=== PATIENT | female | born 1965 | race Caucasian/White ===

== ENCOUNTER → 2023-08-16 08:42 | Outpatient (REF) | payer OTHER, SELFPAY | LOC: HWWDC 08:42 | PROVIDERS: ATTENDING PHYSICIAN Nurse Practitioner Family | DX: Z12.31 Encounter for screening mammogram for malignant neoplasm of breast (principal) | CPT/HCPCS: 77063; 77067 ==

== ENCOUNTER 2023-08-21 15:49 | Inpatient (IN) | payer OTHER, SELFPAY ==
[2023-08-21] VITALS (12 sets, daily range): BP systolic 90–125; BP diastolic 58–97; BMI 25.3
[2023-08-21 13:24] LABS: Hematocrit 34.6 % (37.0-47.0); Hemoglobin 12.1 g/dL (12.0-16.0); Mean Corpuscular Hgb 32.7 pg (27.0-31.0); Mean Corpuscular Volume 93.5 fL (81.0-99.0); Mean Platelet Volume 9.7 fL (7.4-10.4); Platelet Count 160 10^3/uL (130-400); Red Cell Dist. Width 13.2 % (11.5-14.5); White Blood Cell Count 25.7 10^3/uL (4.8-10.8)
[2023-08-21] MEDS: ZOSYN 50 IV ×2 (13:42→20:14)
[2023-08-21 13:43] LABS: ALT (SGPT) 21 U/L (0-35); AST (SGOT) 27 U/L (14-36); Alkaline Phosphatase 77 U/L (38-126); Blood Urea Nitrogen 29 mg/dl (7-17); Calcium 8.9 mg/dl (8.4-10.2); Carbon Dioxide 21 mmol/L (22-30); Chloride 100 mmol/L (98-107); Glucose 105 mg/dl (70-99); Lactic Acid 1.3 mmol/L (0.7-2.0); Potassium 3.5 mmol/L (3.5-5.1); Sodium 130 mmol/L (135-145); Total Bilirubin 1.3 mg/dl (0.2-1.3); Total Protein 7.1 g/dl (6.3-8.2); eGFR 32.46
[2023-08-21] MEDS: NSS 2000 IV (13:43)
[2023-08-21 13:49] LABS: Absolute Neutrophils -Man Diff 22.6 10^3/uL (1.4-6.5); Band Neutrophils 14 % (0-3); Lymphocytes 8 % (20-51); Monocytes 4 % (2-9); Platelets Checked Yes; Segmented Neutrophils 74 % (42-75)
[2023-08-21 13:50] LABS: Normal RBC Morphology Yes; Total Cells Counted 100
--- NOTE | 2023-08-21 14:09 | CON.CRS ---
Addendum entered and electronically signed by Dano Guerrero MD 08/21/23 14:40:
I saw and examined the patient independently.
The Shaft Headman's note was reviewed and I agree with the note, assessment and plan except where noted below.
Comment: This is a 57-year-old female with history of CKD, ulcerative colitis status post near total proctocolectomy with J-pouch in 2003 at [facility] that was complicated by failure converted to an end ileostomy. She gets periodic surveillance of
her rectal pouch. She had an outpatient sigmoidoscopy on , 08/19/2023 at an outpatient hospital. The next day she started having pain, chills and started on Cipro Flagyl. As her pain continued to get worse she was referred to us for
further evaluation. On exam her vital signs are stable, she does have tenderness on digital rectal examination but no blood or pus noted on the glove. Her abdomen is soft and and distended.
Concern for localized perforation of the rectum likely below the peritoneal reflection.
Will plan for CT scan abdomen pelvis with rectal Omnipaque. Discussed with providers to only place the tube 2 cm from the anal verge (I was able to palpate up to 4 cm in the rectum). Unable to use IV contrast due to CKD.
Admit to hospitalist
Broad-spectrum IV antibiotics for now with Zosyn
Procedural intervention pending CT scan findings.
Patient and agreeable to plan above.
Will follow
Original Note:
Medical History
-
Chief Complaint: rectal pain
History of Present Illness:
This is a 57 yo patient with a h/o CKD-3 and Ulcerative colitis with a total colectomy in 2003 with creation of J-pouch at [facility] and subsequent end ileostomy d/t complications with the j-pouch. She had a routine surveillance outpatient sigmoidoscopy
on () with Dr. Nicole with bleeding noted during and after the procedure. She has had prior sigmoidoscopies without incident although anal stricturing has been noted. She has had persistent rectal pain since the procedure on
and was started on cipro and flagyl yesterday by Dr. Nicole. Her pain has persisted and she was having chills at home causing and she was advised to present for further evaluation to the ED by the bonus clerk CRS for Dr. Nicole. LATA done at bedside
with tenderness/discomfort during exam. No active bleeding noted. No external injury visualized. Ostomy with pink stoma/functioning well. No complaints of nausea, vomiting or abdominal pain.
Past Medical History
Past Medical History: Renal Failure (CKD-3) and Other (UC, Pyoderma gangrenosum, DVT in 2003 (provoked))
Past Surgical History: Bowel Resection (Total colectomy with j-pouch and ultimately end ileostomy 2003) and Orthopedic (left wrist ganglion cyst)
Social History
Tobacco: Non-Smoker
Alcohol: None
Personal:
Living: With Family
Family History
Family History: Reviewed & Not Pertinent
Allergies / Home Medications
Allergy/AdvReac Type Severity Reaction Status Date / Time
NKA - No Known Allergies Allergy Unknown Uncoded 08/21/23 11:49
Medication Instructions Recorded Confirmed Type
amoxicillin 875 mg-potassium 1 tab PO Q12 #14 tabs 11/11/20 Rx
clavulanate 125 mg tablet
doxycycline hyclate 100 mg capsule 100 mg PO Q12 #14 caps 11/11/20 Rx
Review of Systems
-
History Source: Patient and Family
All other systems: Negative unless noted
A 10 point review of systems was completed, and was negative except as per HPI.
Physical Exam
Vital Signs
Temp 99.1 F 08/21/23 11:50
Pulse 78 08/21/23 13:19
Resp Rate 16 08/21/23 13:19
Blood pressure 97/58 08/21/23 13:43
SaO2 100 08/21/23 13:35
08/20/23 08/21/23 08/22/23
06:59 06:59 06:59
Actual Weight 63 kg
Lab Results / Allergies
08/21/23 13:13
08/21/23 13:13
WBC 25.7 10^3/uL (4.8-10.8) H 08/21/23 13:13
Hgb 12.1 g/dL (12.0-16.0) 08/21/23 13:13
Hct 34.6 % (37.0-47.0) L 08/21/23 13:13
Plt Count 160 10^3/uL (130-400) 08/21/23 13:13
Allergy/AdvReac Type Severity Reaction Status Date / Time
NKA - No Known Allergies Allergy Unknown Uncoded 08/21/23 11:49
Physical Exam
General: Well Developed; Negative Comfortable
HEENT: Normocephalic
Respiratory: Non Labored Respirations
GI: Soft, Non Tender, Non Distended and Other (stoma pink/viable, loose stool output)
Rectal: Tenderness
Skin: Warm and Dry
Neuro: Awake, Alert and AO x 3
Psych: Calm
Data Reviewed
-
Labs: Labs Reviewed by me, Discussed with Physician, Discussed with Patient and Discussed with Family
Old Records: Reviewed
Assessment / Plan
-
57 yo female h/o CKD-3 (unsure of baseline Cr) and Ulcerative colitis with a total colectomy in 2003 with creation of J-pouch at [facility] and subsequent end ileostomy d/t complications with the j-pouch who underwent a routine surveillance sigmoidoscopy
on as an outpatient with Dr. Nicole. Bleeding was noted during the procedure. She has had continued progressively worsening rectal pain since the procedure causing her to present. Cipro/flagyl started yesterday without much effect. Significant
leukocytosis noted, with soft/low BP. No active fever but does note chills today. Suspect proctitis vs perforation of the rectal pouch/abscess
--Admit to medicine service
--Obtain CT of the abd/pelvis with rectal contrast. Unable to use IV contrast d/t elevated cr
--IV zosyn started in the ED would continue
--Trend labs/fevers
Further surgical recs pending CT imaging findings
--- NOTE | 2023-08-21 14:18 | ED.GENMED ---
History of Present Illness
General
Chief Complaint: Fever
Source: patient and family
Exam Limitations: none
Time Seen by Provider: 08/21/23 12:55
Nursing documentation reviewed up to this point in time: agreed with
Travel History
Have you had any contact with someone who has COVID-19?: No
Do you have any symptoms of coronavirus? Fever > 100 degrees, chills, cough, shortness of breath, sore throat, loss of taste or smell, muscle aches, or headache?: No
History of Present Illness
History of Present Illness:
Patient very pleasant 57-year-old female status post colectomy with ostomy for colitis, had a surveillance sigmoidoscopy 2 days ago at [facility] since then she has had fatigue nausea not eating fevers referred here for evaluation
Takes lisinopril no other medication
Past History
Past History
ED Past Medical History: None
ED Past Surgical History: None
Social History
Tobacco: Non-smoker
Alcohol: Occasional
Drug: None
Personal:
Living: with family
Employment: Employed
Family History
Family History: Other (Noncontributory)
Review of Systems
Review of Systems
All Other Systems: Not applicable
Constitutional: Reports fever, fatigue and chills
EENT: Reports no symptoms
Respiratory: Reports no symptoms
Cardiac: Reports no symptoms
ABD/GI: Reports nausea
: Reports no symptoms
Musculoskeletal: Reports no symptoms
Neurological: Reports weakness
Phy Exam
Physical Exam
Physical Exam:
Physical Exam
General: no apparent distress, not acutely ill
Neck: Lips are slight
Heart: s1/s2 regular rate and rhythm, no murmur. equal radial pulses.
Lungs: no acute respiratory distress. clear bilaterally
Abdomen: Soft not ostomy with air and liquid stool
Neuro: alert and oriented. no focal neurological deficits
Skin: no rash
Psychiatric: well kept. interactive and cooperative
Extremities: no edema.
Course
Orders/Labs/Results
Orders:
Orders
08/21/23 13:13
Complete Blood Count/With Diff Urgent
Comprehensive Metabolic Panel Urgent
Lactic Acid Urgent
Manual Differential Urgent
08/21/23 13:14
Blood Culture Q30M
WILSON Source: Blood/Venous
Specimen Description:
08/21/23 13:22
Blood Culture Q30M
WILSON Source: Blood/Venous
Specimen Description:
08/21/23 13:38
Piperacillin/Tazo 3.375 Gram [Zosyn] 3.375 gram in 50 ml IV NOW
08/21/23 13:39
0.9% Sodium Chloride 1000 ml [Nss] 2,000 ml IV BOLUS
08/21/23 14:14
CT Abd/pel Rectal Only-ED Only Urgent
Comment:
Reason For Exam: no colon, rectal pouch pain p biospy
Abnormal Lab Results
08/21/23
13:13
WBC 25.7 H 10^3/uL
(4.8-10.8)
RBC 3.70 L 10^6/uL
(4.20-5.40)
Hct 34.6 L %
(37.0-47.0)
MCH 32.7 H pg
(27.0-31.0)
Abs Neuts (Manual) 22.6 H 10^3/uL
(1.4-6.5)
Band Neutrophils 14 H %
(0-3)
Lymphocytes (Manual) 8 L %
(20-51)
Sodium 130 L mmol/L
(135-145)
Carbon Dioxide 21 L mmol/L
(22-30)
BUN 29 H mg/dl
(7-17)
Creatinine 1.8 H mg/dL
(0.6-1.0)
Glucose 105 H mg/dl
(70-99)
08/21/23 13:13
08/21/23 13:13
Vital Signs
Initial and Last Documented VS:
Initial Vital Signs
Temp Pulse Resp BP Pulse Ox
99.1 F 103 16 125/96 98
08/21/23 11:50 08/21/23 11:50 08/21/23 11:50 08/21/23 11:50 08/21/23 11:50
Last Documented Vital Signs
Temp Pulse Resp BP Pulse Ox
99.1 F 78 16 102/65 100
08/21/23 11:50 08/21/23 13:19 08/21/23 13:19 08/21/23 14:00 08/21/23 13:55
MDM/Problems Addressed
Differential Diagnosis Includes:
Postop infection and perforation concomitant viral syndrome
MDM/Problems Addressed:
Fever body aches leukocytosis
Chronic conditions affecting care:
Colitis colectomy
Chronic conditions affecting care: Previous abdomnial surgery
Acute Exacerbation and/or Progression of Chronic Illness: Previous abdomnial surgery
*Radiology
Radiology exam reviewed: preliminary read by ED provider
*Pulse Oximetry
Patient hypoxic: no
*[employer] Interpretation
Rate: tachycardiac
Interpretation: abnormal
Heart Rate: 110
Rhythm: sinus
*Critical Care Note
Total Time (30-74mins, 75-104mins- exclusive of procedures): Not Applicable
Update Note
Update Note:
Update white count noted reviewed with the surgery in the ER, they performed a LATA, patient's creatinine is up at baseline it appears white count is up we will start antibiotics consensus is to proceed with CT with rectal contrast
ED Attending Note
-
Portions of this chart may have been created with voice recognition software.� Occasional wrong word or��sound alike� substitutions may have occurred due to the inherent limitations of voice recognition software.
Discharge Plan
Departure
Patient Disposition: Admit
Date of Disposition: 08/21/23
Time of Disposition: 14:21
Admit to: Med/Surg
Presentation/result/management discussed w/ accepting MD/DO: Hospitalist
Patient with high blood pressure during this ER visit?: No
Condition: Fair
Discharge Problem:
Postprocedural infection
Prescriptions:
No Action
amoxicillin-pot clavulanate 1 TABLET tablet
1 tab PO Q12 Qty: 14 0RF
doxycycline hyclate 100 MG capsule
100 mg PO Q12 Qty: 14 0RF
Referrals:
Arnoldo Arreaga CRNP [Family Provider] -
Interventions
Interventions:
*Risk Screen - Suicide Last Done: 08/21/23 11:50
*General Assessment Last Done: 08/21/23 11:50
*Neglect/Abuse Screening Last Done: 08/21/23 11:50
*ED COVID-19 Vaccine History Last Done: 08/21/23 12:26
ED- Neurological Assessment Last Done: 08/21/23 12:26
ED-Skin Assessment Last Done: 08/21/23 12:26
--- NOTE | 2023-08-21 14:43 | HPS.HSE ---
Addendum entered and electronically signed by Arely Pham MD 08/21/23 16:42:
57-year-old female with history of ulcerative colitis and subtotal colectomy in the past. Recently had a surveillance sigmoidoscopy done by . Patient developed fever was started on antibiotics as outpatient. It was not coming down
therefore was asked to go to ER. Patient denies any abdominal pain. Had some rectal pain.
CT reviewed by me
I saw and examined the patient.
The TOBACCO SPRAYER or PA's note was reviewed and I agree with the note.
Comment:
On examination awake alert oriented
Cardiovascular system S1-S2 appreciated
Chest clear to auscultation
Abdomen pelvis area with tenderness with deep palpation, ileostomy
No abdominal guarding or rigidity
No pedal edema
CT of the abdomen pelvis-with rectal contrast only-status post colectomy with rectal pouch. There is contrast in the vaginal canal that would raise concern for communication between Rectum and vaginal canal. Ill-defined collection in the superior
to the lateral margin posterior to the retroverted uterus within the presacral region infected collection possibly. Numerous foci of retroperitoneal air extending superiorly within the pelvis and abdomen, small foci of air adjacent to the liver and
gallbladdeer
cholelithiasis.
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
Admit
Broad-spectrum antibiotics
IR consulted for drain placement
Colorectal surgery evaluation-Dr. Dano Guerrero covering evaluated
May need eventual surgery
ID consultation
Keep n.p.o. with IV fluids
Blood cultures
# Chronic kidney disease # stage unknown. Creatinine was 1.28 April 2023
Hold lisinopril
Continue IV fluids
# Ileostomy
# DVT prophylaxis-subcutaneous heparin
# Full code
D/w at bed side
Original Note:
Family Physician
-
Family Physician: TIARA Tyson
Chief Complaint
-
rectal pain
History of Present Illness
57 yo female h/o CKD-3 and Ulcerative colitis with a total colectomy in 2003 with creation of J-pouch at [facility] and subsequent end ileostomy d/t complications with the j-pouch who underwent a routine surveillance sigmoidoscopy on as an
outpatient with Dr. Nicole. Bleeding was noted during the procedure. She has had continued progressively worsening rectal pain since the procedure. She was febrile with a temperature of 101 with chills, nausea and vomiting yesterday, although she
cannot be sure if she was febrile on since she did not take her temperature that day. Subsequently, Cipro/flagyl was started yesterday without much effect so her brought her to the ED today. Significant leukocytosis noted. Currently
no fever but does note chills today.
Medical History
Past Medical History
Past Medical History: Reports Renal Failure (CKD 3) and Other (ulcerative colitis)
Past Surgical History: Reports Bowel Resection (Total colectomy with j-pouch and ultimately end ileostomy 2003) and Orthopedic (left wrist ganglion cyst)
Social History
Tobacco: Non-smoker
Alcohol: Occasional
Drug: None
Personal:
Living: With Family
Employment: Employed
Family History
Family History: Not pertinent
Allergies / Home Medications
Allergies reflects when Allergies were last updated in [facility].
Home Medications with original date entered in [facility]
Allergy/Medication List:
Allergies
Allergy/AdvReac Type Severity Reaction Status Date / Time
NKA - No Known Allergies Allergy Unknown Uncoded 08/21/23 11:49
Home Medications
acetaminophen 325 mg tablet (Tylenol) 650 mg PO Q6HPRN PRN mild pain 08/21/23
ascorbic acid (vitamin C) 500 mg tablet (Vitamin C) 500 mg PO DAILY 08/21/23
ciprofloxacin HCl 500 mg tablet 500 mg PO BID 08/21/23
lisinopril 2.5 mg tablet 2.5 mg PO DAILY 08/21/23
metronidazole 500 mg tablet 500 mg PO TID 08/21/23
omega-3 fatty acids-fish oil 684 mg-1,200 mg capsule,delayed release 1 cap PO DAILY 08/21/23
therapeutic multivitamin 1 tab PO DAILY 08/21/23
vitamin E 268 mg (400 unit) capsule 268 mg PO DAILY 08/21/23
Review of Systems
-
History Source: Patient
A 12 point ROS was completed and negative except as noted: Yes
Constitutional: Reports Fever, Fatigue and Chills
EENT: Reports No Symptoms
Respiratory: Reports No Symptoms
Cardiac: Reports No Symptoms
Abdomen/GI: Reports Nausea, Vomiting and Pain
: Reports No Symptoms
Musculoskeletal: Reports No Symptoms
Skin: Reports No Symptoms
Neurological: Reports Weakness
Endocrine: Reports No Symptoms
Hematologic/Lymphatic: Reports No Symptoms
Psych: Reports No Symptoms
Physical Exam
Vital Signs
Vital Signs
Temp Pulse Resp BP Pulse Ox
99.1 F 78 16 102/65 100
08/21/23 11:50 08/21/23 13:19 08/21/23 13:19 08/21/23 14:00 08/21/23 13:55
Physical Exam
General: Appears in Distress, Pain and Poor Appetite
HEENT: NormoCephalic, Anicteric and Atraumatic
Respiratory: Clear
Cardiac: S1/S2 and Regular Rhythm
Breast: Deferred by me
GI: Soft, Distended and Ostomy
Rectal: Deferred by Provider
Genito-urinary: Deferred by me
Musculoskeletal: No Clubbing, Cyanosis and No Edema
Skin: Warm and Dry
Neuro: Awake, Alert, Oriented and AO x 3
Hematologic/Lymphatic: No Lymphadenopathy
Psych: Intact Judgment/Insight
Laboratory Results
-
08/21/23 13:13
08/21/23 13:13
Laboratory Results
Lactic Acid 1.3 mmol/L (0.7-2.0) 08/21/23 13:13
Total Bilirubin 1.3 mg/dl (0.2-1.3) 08/21/23 13:13
AST 27 U/L (14-36) 08/21/23 13:13
ALT 21 U/L (0-35) 08/21/23 13:13
Alkaline Phosphatase 77 U/L (38-126) 08/21/23 13:13
Impression/Plan
-
IMPRESSION/PLAN:
#Sepsis
-Leukocytosis WBC 25.7
-Zosyn IV
-trend and treat for fever
-Blood cultures pending
-NPO
-IVF
-antiemetics
#Acute rectal pain
-tylenol, dilaudid
-concern for peforation, CT abdomen results pending
-Colorectal c/s
#Status post colectomy with rectal pouch
#Ulcerative colitis
-Sigmoidoscopy done outpatient on at [facility]
#CKD stage 3
-Baseline cr 1.08, currently 1.8
-BMP with am labs
-IVF
-avoid nephrotoxic agents
-Hold lisinopril
Full Code
DVT Prophylaxis: Heparin
--- NOTE | 2023-08-21 16:03 | W.PN.UPDATE ---
Update Note
Progress Note Update
Brief GS/CORS note:
CT scan reviewed. There is a retroperitoneal rectal abscess as well as a recto-vaginal fistula. The air tracking in the retroperitoneum is almost certainly from the pneumo used during her flexible sigmoidoscopy/biopsy procedure and not concerning at
this time.
Will consult IR for a percutaneous drain into the collection. There appears to be a transgluteal window.
Continue IV abx
Will d/w patient definitive surgical options down the road namely completion APR/posterior vaginal repair.
[2023-08-21] MEDS: TYLENOL 650 MG PO (17:04)
[2023-08-21] MEDS: NSS 1000 IV (18:42)
--- NOTE | 2023-08-21 18:50 | PTCARENOTE ---
Notified primary attending as well as cross cover of patient's temperature. Tylenol had been given down in the ED for headache. IVF increased. Also notified providers of patient asking about CT scan results.
[2023-08-21] MEDS: LOVENOX 30 MG SC (21:16)
--- NOTE | 2023-08-21 21:56 | W.PN.UPDATE ---
Update Note
Progress Note Update
pt states had rectal bleeding hx with heparin. prefers lovenox
With cr 1.8 Gfr 32 will dose with 30mg lovenox daily
[2023-08-22] VITALS (7 sets, daily range): BP systolic 74–111; BP diastolic 63–74
[2023-08-22] MEDS: ZOSYN 50 IV ×4 (01:28→19:21)
[2023-08-22] MEDS: NSS 1000 IV ×2 (05:18→19:22)
[2023-08-22 09:20] LABS: % Basophils 0.2 % (0-2); % Eosinophils 0.2 % (0-6); % Lymphocytes 5.1 % (20.5-51.1); % Monocytes 3.2 % (1.7-9.3); % Neutrophils 89.3 % (42.2-75.2); Absolute Basophils 0.1 10^3/uL (0-0.2); Absolute Eosinophils 0.1 10^3/uL (0-0.7); Absolute Immature Granulocytes 0.5 10^3/uL (0-0.05); Absolute Lymphocytes 1.2 10^3/uL (1.2-3.4); Absolute Monocytes 0.8 10^3/uL (0.1-0.6); Absolute Neutrophils 21.9 10^3/uL (1.4-6.5); Hematocrit 32.1 % (37.0-47.0); Hemoglobin 10.9 g/dL (12.0-16.0); Mean Corpuscular Hgb 32.2 pg (27.0-31.0); Mean Platelet Volume 10.4 fL (7.4-10.4); Nucleated Red Blood Cells % 0 %; Platelet Count 170 10^3/uL (130-400); Red Blood Cell Count 3.38 10^6/uL (4.20-5.40); Red Cell Dist. Width 13.2 % (11.5-14.5); White Blood Cell Count 24.5 10^3/uL (4.8-10.8)
--- NOTE | 2023-08-22 09:28 | W.PN.GS2 ---
Today's Communication / Plan
-
IR drain.
Continue IV antibiotics.
Okay for diet after procedure.
Assessment / Plan
-
This is a 57-year-old female with a history of CKD, ulcerative colitis status post near total proctocolectomy with J-pouch which was very quickly converted to an end ileostomy. Who presents 2 days after a surveillance flexible sigmoidoscopy of her
rectal stump with concern for a localized retroperitoneal perforation.
N.p.o., IV fluids, IV Zosyn.
Plan for IR drain today under sedation.
Okay for diet after procedure
Follow-up drain cultures.
Colorectal surgery will continue to follow.
Time Spent
Total Time Spent with Patient (in minutes): 20
Subjective Data
-
Date of Service: August 22, 2023
Interval Events:
No acute events overnight. Pain is stable and moderately well-controlled.
Objective Data
-
Intake and Output
08/21/23 08/22/23 08/23/23
06:59 06:59 06:59
Intake Total 1220 / 1220
Balance 1220 / 1220
Intake:
Oral fluids 20 / 20
IV fluids (Total) 1200 / 1200
Other:
Number of approximated MODERATE 2
amounts of urine
Vital Signs
Temp Pulse Resp BP Pulse Ox
100.5 F H 80 16 111/66 95
08/22/23 07:19 08/22/23 07:19 08/22/23 07:19 08/22/23 07:19 08/22/23 07:19
Lab Results
08/22/23 06:10
Calcium 8.9 mg/dl (8.4-10.2) 08/21/23 13:13
Total Bilirubin 1.3 mg/dl (0.2-1.3) 08/21/23 13:13
AST 27 U/L (14-36) 08/21/23 13:13
ALT 21 U/L (0-35) 08/21/23 13:13
Alkaline Phosphatase 77 U/L (38-126) 08/21/23 13:13
Total Protein 7.1 g/dl (6.3-8.2) 08/21/23 13:13
Albumin 4.0 g/dl (3.5-5.0) 08/21/23 13:13
Physical Exam
-
GENERAL/NEURO: Awake, Alert, no distress
CHEST: Unlabored breathing on RA
ABDOMEN: Soft, Non-Tender, Non-Distended
Buttocks: Rectal exam deferred
[2023-08-22 09:39] LABS: ALT (SGPT) 17 U/L (0-35); AST (SGOT) 25 U/L (14-36); Albumin 3.3 g/dl (3.5-5.0); Alkaline Phosphatase 86 U/L (38-126); Blood Urea Nitrogen 23 mg/dl (7-17); Calcium 8.4 mg/dl (8.4-10.2); Carbon Dioxide 20 mmol/L (22-30); Chloride 105 mmol/L (98-107); Estimated Creatinine Clearance 38 ml/min; Glucose 60 mg/dl (70-99); Potassium 3.1 mmol/L (3.5-5.1); Sodium 133 mmol/L (135-145); Total Bilirubin 0.8 mg/dl (0.2-1.3); Total Protein 6.3 g/dl (6.3-8.2); eGFR 43.88
--- NOTE | 2023-08-22 11:12 | CM ---
Patient seen bedside.
IA completed.
Patient lives with spouse in 2 story home.
Independent prior to admission.
Patient with hx iliostomy.
Dx post procedural infection
patient drives.
PCP: Dr Arreaga
Pharmacy: [facility]
Plan: home, watch for VN
--- NOTE | 2023-08-22 11:15 | W.PN.UPDATE ---
Update Note
Progress Note Update
Pelvic drainage catheter placed. No fluid could be aspirated through 18 g needle, despite repositioning the needle multiple times. Placed 8 [place] drain, still no fluid was drained.
Possible that the abnormality on CT was phlegmon rather than well developed abscess, it is difficult to tell without IV contrast.
--- NOTE | 2023-08-22 13:53 | CON.ID ---
Consultation
-
Date/Time Consultation Requested: 08/22/2023, 0842
Date/Time Consultation Performed: 08/22/2023, 1400
Requesting Provider: Dr. Arely Pham
Performing Provider: Dr. Kyara Kirby
Reason for Consultation: Fever, abscess
Chief Complaint / Past History
Chief Complaint
Fever, rectal pain after sigmoidoscopy.
History of Present Illness
57 year old female with hx UC pancolitis s/p total colectomy, j pouch immediately removed due to bleeding, with end ileostomy 2003 at [facility]. On , she underwent surveillance sigmoidoscopy at [facility]. Per patient, GI thought she still
had rectal pouch and must have tried to get sigmoidoscopy higher. Post-procedure, patient with significant rectal pain. There was serous bloody drainage. On Wed, she was prescribed cipro and metronidazole. She developed fever and chills. She came
to ED on 08/20. CT a/p with rectal contrast showed contrast in anal stump spilling into vaginal canal with ill-defined collection above the stump and presacral region; numerous foci of retroperitoneal air. IR placed perc drain but no fluid output
for cx. Today, rectal pain slightly better. No vaginal discharge.
Past History
Additional Past Medical History:
Ulcerative pancolitis s/p total colectomy with J pouch which was immediately removed due to bleeding, followed by end ileostomy 2003 at [facility].
Anal stricture
CKD3
Allergy History:
No Known Allergies Allergy (Unverified 08/21/23 16:45)
Medications Reviewed: Yes
Current Antibiotics:
Zosyn
Social History
Tobacco: Non-Smoker
Alcohol: Occasional
Drug: None
Personal:
Living: With Family
Family History
Family History: Not Pertinent
Review of Systems
Review of Systems
General: Fever, Chills and Change in Appetite
HEENT: Negative Sinus Problems, Headache or Pharyngitis
Cardiovascular: Negative Chest Pain or Dyspnea
Respiratory: Negative Dyspnea or Cough
Gasteroenterology: Negative Nausea or Vomiting
Genital / Urological: Negative Dysuria or Flank Pain
Skin / Hair / Nails: Negative Rash
Neurological: Negative Headache or Dizziness
All systems: All other systems were reviewed and were negative
Vital Signs
Temp Pulse Resp BP Pulse Ox
98.5 F 70 16 100/68 97
08/22/23 11:25 08/22/23 11:30 08/22/23 11:30 08/22/23 11:30 08/22/23 11:30
Selected Entries
08/21/23
18:00 08/22/23
07:19
Temp 101.0 F H 100.5 F H
Physical Exam
Physical Exam
Constitutional: No Acute Distress and Comfortable
Eyes: No Conjunctival Hemorrhage and Sclera Anicteric
Cardiovascular: Regular Rate and S1/S2
Pulmonary: Clear
Gastrointestinal: Soft, Non Tender, Non Distended, Normal Bowel Sounds and Other (JUSTIN drain: small amt of cloudy serosanguinous fluid)
Genito-Urinary: Negative Suprapubic Tenderness or CVA Tenderness
Extremities: Negative Edema
Neurological: AO x 3
Lab / Diagnostic Study Results
08/22/23 06:10
08/22/23 06:10
Abs Immat Gran (auto) 0.5 10^3/uL (0-0.05) H 08/22/23 06:10
Absolute Neuts (auto) 21.9 10^3/uL (1.4-6.5) H 08/22/23 06:10
Absolute Lymphs (auto) 1.2 10^3/uL (1.2-3.4) 08/22/23 06:10
Absolute Monos (auto) 0.8 10^3/uL (0.1-0.6) H 08/22/23 06:10
Absolute Basos (auto) 0.1 10^3/uL (0-0.2) 08/22/23 06:10
Total Counted 100 08/21/23 13:13
Immature Gran % 2.0 % (0-0.5) H 08/22/23 06:10
Neutrophils % 89.3 % (42.2-75.2) H 08/22/23 06:10
Lymphocytes % 5.1 % (20.5-51.1) L 08/22/23 06:10
Monocytes % 3.2 % (1.7-9.3) 08/22/23 06:10
Eosinophils % 0.2 % (0-6) 08/22/23 06:10
Basophils % 0.2 % (0-2) 08/22/23 06:10
Abs Neuts (Manual) 22.6 10^3/uL (1.4-6.5) H 08/21/23 13:13
Segmented Neutrophils 74 % (42-75) 08/21/23 13:13
Band Neutrophils 14 % (0-3) H 08/21/23 13:13
Lymphocytes (Manual) 8 % (20-51) L 08/21/23 13:13
Lactic Acid 1.3 mmol/L (0.7-2.0) 08/21/23 13:13
Microbiology Results
Micro:
08/21/23 13:22 Blood Culture - Preliminary
Blood/Venous No Growth in 24 hours- Final report to follow
08/21/23 13:14 Blood Culture - Preliminary
Blood/Venous No Growth in 24 hours- Final report to follow
08/22/23 09:20 MRSA Screen - Pending
Nose
08/21/23 19:26 Blood Culture - Pending
Blood/Venous
08/21/23 19:25 Blood Culture - Pending
Blood/Venous
08/21/23 CT a/p: Small amount of rectal contrast administered and extends into the rectal pouch. There is contrast present within the vaginal canal, and would raise concern for communication between the rectal pouch endovaginal canal. Ill-defined
collection is present superior to the rectal pouch and posterior to the retroverted uterus within the presacral region, new since prior CT examination. Infected collection is a possibility. Numerous foci of retroperitoneal air extending superiorly
within the pelvis and abdomen. Small foci of air adjacent to the liver and gallbladder may represent extension of retroperitoneal air intraperitoneally. No significant intraperitoneal air underneath the hemidiaphragms.
Assessment / Plan
# Post-procedure Abd/pelvic abscess
# Sepsis: fever, leukocytosis, bandemia
# UC hx total colectomy, end ileostomy 2003
- s/p surveillance sigmoidoscopy with concern for anal stump perforation, fistula to vaginal canal
- Perc drain placed today without fluid output (no cx sent).
- JUSTIN drain placed 3 hrs ago and has not been opened yet, therefore should be 'sterile'. Send flushed fluid from JUSTIN drain for aerobic and anaerobic culture.
-blood cx's neg to date
-Continue Zosyn
- Trend fever, wbc, bandemia
--- NOTE | 2023-08-22 15:34 | W.PN.HOSP.TC ---
Addendum entered and electronically signed by Arely Pham MD 08/22/23 15:41:
D/W at bed side
Original Note:
Today's Communication/Plan
-
Advance diet to regular diet
Continue IV fluids for today with elevated creatinine
Follow-up labs
Follow cultures
Assessment / Plan
Assessment / Plan
Denies any actual pain mild discomfort only
On examination awake alert oriented
Cardiovascular system S1-S2 appreciated
Chest clear to auscultation
Abdomen pelvis area with tenderness with deep palpation, ileostomy
No abdominal guarding or rigidity
No pedal edema
CT of the abdomen pelvis-with rectal contrast only-status post colectomy with rectal pouch.� There is contrast in the vaginal canal that would raise concern for communication between Rectum and vaginal canal.� Ill-defined collection in the superior
to the lateral margin posterior to the retroverted uterus within the presacral region infected collection possibly.� Numerous foci of retroperitoneal air extending superiorly within the pelvis and abdomen, small foci of air adjacent to the liver and
gallbladder
�cholelithiasis.
# Sepsis-source abscess/perforation with possible rectovaginal fistula-postprocedure
Status post pelvic drainage catheter placed very little fluid
Broad-spectrum antibiotics-Zosyn
White count still elevated-leukocytosis bandemia on admission
Fluid cultures
Colorectal surgery evaluation-Dr. Dano Guerrero covering evaluated
May need eventual surgery at some point
ID consultation appreciated
Blood cultures
Started diet
# Chronic kidney disease stage unknown.� Creatinine was 1.28 April 2023
Hold lisinopril
Continue IV fluids
# Hyponatremia-follow
# Hypokalemia-replace
# Ileostomy
# DVT prophylaxis-subcutaneous heparin
# Full code
Discussed with surgery
Discussed with nursing
Anticipated Discharge: > 48 hours
Subjective/Interval History
-
Date of Service: August 22, 2023
Objective Data
-
Labs:
Laboratory Results
08/22/23
06:10
WBC 24.5 H
Hgb 10.9 L
Hct 32.1 L
Plt Count 170
Sodium 133 L
Potassium 3.1 L
Chloride 105
Carbon Dioxide 20 L
BUN 23 H
Creatinine 1.4 H
Glucose 60 L
Calcium 8.4
Total Bilirubin 0.8
AST 25
ALT 17
Alkaline Phosphatase 86
Vital Signs:
Vital Signs
Temp Pulse Resp BP Pulse Ox
100.2 F 74 18 110/63 96
08/22/23 15:12 08/22/23 15:12 08/22/23 15:12 08/22/23 15:12 08/22/23 15:12
I&O
08/21/23 08/22/23 08/23/23
06:59 06:59 06:59
Intake Total 1220 / 1220
Balance 1220 / 1220
[2023-08-22] MEDS: KCL 40 MEQ PO (15:51)
[2023-08-22] MEDS: LOVENOX 30 MG SC (17:37)
[2023-08-23] MEDS: ZOSYN 50 IV ×4 (01:58→19:35)
[2023-08-23] MEDS: NSS 1000 IV ×2 (05:17→13:13)
[2023-08-23 05:37] LABS: Hematocrit 30.8 % (37.0-47.0); Hemoglobin 10.5 g/dL (12.0-16.0); Mean Corp Hgb Conc. 34.1 g/dL (33.0-37.0); Mean Corpuscular Hgb 31.9 pg (27.0-31.0); Mean Corpuscular Volume 93.6 fL (81.0-99.0); Mean Platelet Volume 10.3 fL (7.4-10.4); Platelet Count 183 10^3/uL (130-400); Red Blood Cell Count 3.29 10^6/uL (4.20-5.40); Red Cell Dist. Width 13.2 % (11.5-14.5); White Blood Cell Count 13.3 10^3/uL (4.8-10.8)
[2023-08-23 05:57] LABS: Blood Urea Nitrogen 18 mg/dl (7-17); Calcium 8.3 mg/dl (8.4-10.2); Carbon Dioxide 22 mmol/L (22-30); Chloride 104 mmol/L (98-107); Estimated Creatinine Clearance 45 ml/min; Glucose 96 mg/dl (70-99); Magnesium 2.1 mg/dl (1.6-2.3); Potassium 3.8 mmol/L (3.5-5.1); Sodium 134 mmol/L (135-145)
--- NOTE | 2023-08-23 06:51 | W.PN.HOSP.TC ---
Today's Communication/Plan
-
cont abx as per ID
follow cultures
monitor fever curve, trend wbc
IVF completed, monitor Renal function off
Assessment / Plan
Assessment / Plan
Physical Exam
General: No acute distress appears comfortable at this time
Cardiovascular system: S1-S2 appreciated no murmurs rubs gallops
Chest: clear to auscultation b/l
Abdomen: pelvis area with tenderness with deep palpation, ileostomy, JUSTIN drain in place
No abdominal guarding or rigidity
Ext:No pedal edema
Neuro: Awake Alert Conversant
57F CKD3 Ulcerative Colitis Total Colectomy 2004 Ileostomy J-pouch here for sepsis perforation & SPENCER
CT of the abdomen pelvis-with rectal contrast only-status post colectomy with rectal pouch.� There is contrast in the vaginal canal that would raise concern for communication between Rectum and vaginal canal.� Ill-defined collection in the superior
to the lateral margin posterior to the retroverted uterus within the presacral region infected collection possibly.� Numerous foci of retroperitoneal air extending superiorly within the pelvis and abdomen, small foci of air adjacent to the liver and
gallbladder
�cholelithiasis.
# Sepsis-source abscess/perforation with possible rectovaginal fistula-postprocedure
Status post pelvic drainage catheter placed very little fluid
Broad-spectrum antibiotics-Zosyn
White count still elevated-leukocytosis bandemia on admission
Fluid cultures
CRS eval appreciated possible drain study inpt vs outpt
ID consultation appreciated
Blood cultures NGTD
tolerating diet IVF completed
# SPENCER, unclear baseline
Hold lisinopril
Cr improving from initial 1.8 to current 1.2
IVF completed as above
# Hyponatremia-follow
# Hypokalemia-replace
# Ileostomy
# DVT prophylaxis-subcutaneous heparin
# Full code
I spent a total of 58 minutes with the patient or on the floor. More than 50% of this time involved counseling and coordination of care.
Anticipated Discharge: 24 - 48 hours
Subjective/Interval History
-
Date of Service: August 23, 2023
no acute distress resting comfortably in bed. reports overall symptomatic improvement, denies pain. Tolerating diet though reports poor appetite.
Objective Data
-
Labs:
Laboratory Results
08/23/23
04:32
WBC 13.3 H
Hgb 10.5 L
Hct 30.8 L
Plt Count 183
Sodium 134 L
Potassium 3.8
Chloride 104
Carbon Dioxide 22
BUN 18 H
Creatinine 1.2 H
Glucose 96
Calcium 8.3 L
Vital Signs:
Vital Signs
Temp Pulse Resp BP Pulse Ox
98.6 F 77 18 104/67 95
08/23/23 03:07 08/22/23 23:00 08/22/23 23:00 08/22/23 23:00 08/22/23 23:00
I&O
08/21/23 08/22/23 08/23/23
06:59 06:59 06:59
Intake Total 1220 / 1220 1450 / 1450
Output Total 5 / 5
Balance 1220 / 1220 1445 / 1445
[2023-08-23 07:20] VITALS: BP 111/74
--- NOTE | 2023-08-23 09:11 | W.PN.CRS1 ---
Today's Communication / Plan
-
Overall improved and no indication for surgery at this time.
She is hopeful to go home but I recommend she stay until afebrile and her WBC has normalized.
Antibiotics as per ID. Follow-up drain cultures.
Will consider a drain study tomorrow, or an as outpatient.
Assessment/Plan
-
57-year-old female with a history of CKD, ulcerative colitis status post near total proctocolectomy with J-pouch (3-stage) by Dr. Goldsmith, which was very quickly converted to an end ileostomy due to hemorrhaging, who presents 2 days after a
surveillance flexible sigmoidoscopy of her rectal stump with concern for a localized retroperitoneal perforation.
CT on 08/21/23 with a small amount of rectal contrast administered and extends into the rectal pouch. There is contrast present within the vaginal canal, and would raise concern for communication between the rectal pouch endovaginal canal.
Ill-defined collection is present superior to the rectal pouch and posterior to the retroverted uterus within the presacral region, new since prior CT examination. Infected collection is a possibility.
Numerous foci of retroperitoneal air extending superiorly within the pelvis and abdomen. Small foci of air adjacent to the liver and gallbladder may represent extension of retroperitoneal air intraperitoneally. No significant intraperitoneal air
underneath the hemidiaphragms.
Percutaneous drain placed yesterday with very little output.
Her fevers seem to be improving (Tmax 100.4 at 23:00) and her WBC is normalizing (13.3)
Subjective Data
Subjective Data
Date of Service: August 23, 2023
Percutaneous drain placed yesterday with very little output.
She feels better today, less pain and less fatigued.
She is tolerating a regular diet.
No vaginal drainage.
Objective Data
-
Vital Signs
Temp Pulse Resp BP Pulse Ox
98.9 F 70 18 111/74 96
08/23/23 07:20 03/04/24 07:20 08/23/23 07:20 08/23/23 07:20 08/23/23 07:20
Intake & Output
08/22/23 08/23/23 08/24/23
06:59 06:59 06:59
Intake Total 1220 / 1220 1450 / 1450
Output Total
Balance 1220 / 1220 1445 / 1445
Intake:
Oral fluids 240 / 240
IV fluids (Total) 1200 / 1200 1200 / 1200
Amount instilled into Drain (
Total)
Left Atif-Corona Placed in IR
Output:
Drain Output (Total)
Left Atif-Corona Placed in IR
Other:
Number of approximated MODERATE 2 1
amounts of urine
Lab Results
08/23/23 04:32
08/23/23 04:32
Physical Exam
-
General: No Acute Distress
Abdomen: Soft, Non Distended and Non Tender
Rectal: Other (No external tenderness, fluctuance or induration. LATA limited due to pain.)
Extremities: No Calf Tenderness
--- NOTE | 2023-08-23 14:27 | W.PN.ID1 ---
Date of Service
Date of Service: August 23, 2023
Today's Communication
Continue Zosyn
Assessment / Plan
# Post-procedure Abd/pelvic abscess
# Sepsis: fever, leukocytosis - trending down
# UC hx total colectomy, end ileostomy 2003
- s/p surveillance sigmoidoscopy with concern for anal stump perforation, fistula to vaginal canal
- Perc drain placed today without fluid output (no cx sent).
- JUSTIN drain fluid cx neg to date
-blood cx's neg to date
-Continue Zosyn for now
- Trend fever, wbc.
Chief Complaint
-: Other (Abscess)
Subjective / Review of Systems
Rectal discomfort improved. Not as tired.
Vital Signs / Physical Exam
Vital Signs
Vital Signs
Temp Pulse Resp BP Pulse Ox
98.9 F 70 18 111/74 96
08/23/23 07:20 08/23/23 07:20 08/23/23 07:20 08/23/23 07:20 08/23/23 07:20
Selected Entries
08/22/23
23:00
Temp 100.4 F H
Physical Exam
Constitutional: No Acute Distress and Comfortable
Pulmonary: Clear
Gastrointestinal: Soft, Non Tender, Non Distended and Other (JUSTIN drain: serosanguinous fluid)
Objective Data
Lab Data
Lab Results
08/23/23 04:32
08/23/23 04:32
Estimated Creat Clear 45 ml/min 08/23/23 04:32
Lactic Acid 1.3 mmol/L (0.7-2.0) 08/21/23 13:13
Total Bilirubin 0.8 mg/dl (0.2-1.3) 08/22/23 06:10
AST 25 U/L (14-36) 08/22/23 06:10
ALT 17 U/L (0-35) 08/22/23 06:10
Alkaline Phosphatase 86 U/L (38-126) 08/22/23 06:10
Most recent labs reviewed.
Micro Results:
08/21/23 13:22 Blood Culture - Preliminary
Blood/Venous No Growth in 48 hours- Final report to follow
08/21/23 13:14 Blood Culture - Preliminary
Blood/Venous No Growth in 48 hours- Final report to follow
08/22/23 14:55 Body Fluid Culture - Preliminary
Fluid No Growth After 18-24 Hours
Gram Stain - Preliminary
08/22/23 14:55 Anaerobic Culture - Preliminary
Abdomen Culture pending. Anaerobic cultures are examined after 3
days incubation. Additional information to follow.
08/21/23 19:25 Blood Culture - Preliminary
Blood/Venous No Growth in 24 hours- Final report to follow
08/21/23 19:26 Blood Culture - Preliminary
Blood/Venous No Growth in 24 hours- Final report to follow
08/22/23 09:20 MRSA Screen - Pending
Nose
08/21/23 CT a/p: Small amount of rectal contrast administered and extends into the rectal pouch. There is contrast present within the vaginal canal, and would raise concern for communication between the rectal pouch endovaginal canal. Ill-defined
collection is present superior to the rectal pouch and posterior to the retroverted uterus within the presacral region, new since prior CT examination. Infected collection is a possibility. Numerous foci of retroperitoneal air extending superiorly
within the pelvis and abdomen. Small foci of air adjacent to the liver and gallbladder may represent extension of retroperitoneal air intraperitoneally. No significant intraperitoneal air underneath the hemidiaphragms.
[2023-08-23 15:45] VITALS: BP 120/75
[2023-08-23] MEDS: LOVENOX 30 MG SC (17:25)
[2023-08-23] MEDS: TYLENOL 650 MG PO (17:32)
[2023-08-23 23:33] VITALS: BP 111/71
[2023-08-24] MEDS: ZOSYN 50 IV ×2 (02:17→08:40)
[2023-08-24 07:36] VITALS: BP 122/72
[2023-08-24 07:54] LABS: Hematocrit 32.1 % (37.0-47.0); Hemoglobin 10.9 g/dL (12.0-16.0); Mean Corpuscular Hgb 31.3 pg (27.0-31.0); Mean Corpuscular Volume 92.2 fL (81.0-99.0); Mean Platelet Volume 9.4 fL (7.4-10.4); Platelet Count 220 10^3/uL (130-400); Red Blood Cell Count 3.48 10^6/uL (4.20-5.40); Red Cell Dist. Width 13.4 % (11.5-14.5); White Blood Cell Count 8.1 10^3/uL (4.8-10.8)
--- NOTE | 2023-08-24 07:54 | W.PN.HOSP.TC ---
Addendum entered and electronically signed by Alessio Montoya MD 08/24/23 11:39:
Total Time Preparing Discharge ___57____ minutes including examination of the patient, summary of the hospital stay, instructions for continuing care to all relevant caregivers; and preparation of discharge records, prescriptions, and referral
forms if necessary.
Original Note:
Today's Communication/Plan
-
discharge
Assessment / Plan
Assessment / Plan
Physical Exam
General: No acute distress appears comfortable at this time
Cardiovascular system: S1-S2 appreciated no murmurs rubs gallops
Chest: clear to auscultation b/l
Abdomen: soft nontender bowel sounds present, ileostomy
No abdominal guarding or rigidity
Ext:No pedal edema
Neuro: Awake Alert Conversant
57F CKD3 Ulcerative Colitis Total Colectomy 2004 Ileostomy J-pouch here for sepsis perforation & SPENCER
CT of the abdomen pelvis-with rectal contrast only-status post colectomy with rectal pouch.� There is contrast in the vaginal canal that would raise concern for communication between Rectum and vaginal canal.� Ill-defined collection in the superior
to the lateral margin posterior to the retroverted uterus within the presacral region infected collection possibly.� Numerous foci of retroperitoneal air extending superiorly within the pelvis and abdomen, small foci of air adjacent to the liver and
gallbladder
�cholelithiasis.
# Sepsis-source abscess/perforation with possible rectovaginal fistula-postprocedure
Status post pelvic drainage catheter placed very little fluid, drain since removed
Leukocytosis resolved
Fluid cultures NGTD
Blood cultures NGTD
CRS eval appreciated possible drain study inpt vs outpt
tolerating diet IVF completed
ID consultation appreciated Zosyn transitioned to Levofloxacin 750 mg daily and metro 500 mg Q8 x 10 more days
# SPENCER, unclear baseline
Hold lisinopril
Cr improving from initial 1.8 to current 1.1
IVF completed as above
# Mild Hyponatremia- resolved
# Hypokalemia, resolved following repletion
# Ileostomy
# DVT prophylaxis-subcutaneous heparin
# Full code
I spent a total of 57 minutes with the patient or on the floor. More than 50% of this time involved counseling and coordination of care.
Anticipated Discharge: Today
Subjective/Interval History
-
Date of Service: August 24, 2023
Seen and examined at bedside in no acute distress sitting up comfortably in bed. Denies new acute issues at this time. Drain since removed. Patient reports overall feeling well, eager to go home.
Objective Data
-
Labs:
Laboratory Results
08/24/23
06:21
WBC Pending
Hgb Pending
Hct Pending
Plt Count Pending
Sodium Pending
Potassium Pending
Chloride Pending
Carbon Dioxide Pending
BUN Pending
Creatinine Pending
Glucose Pending
Calcium Pending
Vital Signs:
Vital Signs
Temp Pulse Resp BP Pulse Ox
99.3 F 69 17 122/72 96
08/24/23 07:36 08/24/23 07:36 08/24/23 07:36 08/24/23 07:36 08/24/23 07:36
I&O
08/23/23 08/24/23 08/25/23
06:59 06:59 06:59
Intake Total 1450 / 1450 1590 / 1590
Output Total
Balance 1445 / 1445 1565 / 1565
[2023-08-24 08:20] LABS: Blood Urea Nitrogen 16 mg/dl (7-17); Calcium 8.9 mg/dl (8.4-10.2); Carbon Dioxide 23 mmol/L (22-30); Chloride 105 mmol/L (98-107); Estimated Creatinine Clearance 49 ml/min; Glucose 101 mg/dl (70-99); Potassium 3.6 mmol/L (3.5-5.1); Sodium 137 mmol/L (135-145); eGFR 58.61
--- NOTE | 2023-08-24 10:13 | PN.IRAD.UPD ---
Update Note - IRAD
- -
Cleaned left gluteal drain with chloraprep and removed bedside. Site dressed with gauze and a primapore.
Christopher Gabriel RT(R)()
--- NOTE | 2023-08-24 10:16 | W.PN.ID1 ---
Date of Service
Date of Service: August 24, 2023
Today's Communication
Transition to Levofloxacin 750mg po qd and metronidazole 500mg po q8 x 10 more days.
Assessment / Plan
# Post-procedure Abd/pelvic abscess
# Sepsis: fever, leukocytosis - resolved
# UC hx total colectomy, end ileostomy 2003
- s/p surveillance sigmoidoscopy with concern for anal stump perforation, fistula to vaginal canal
- Perc drain placed today without fluid output (no cx sent).
- JUSTIN drain fluid cx neg tx 48h
-blood cx's neg to date
- Transition Zosyn to Levofloxacin 750mg po qd and metronidazole 500mg po q8 x 10 more days.
Discussed potential tendinitis/rupture, C, diff associated with FQ.
No alcohol while on metronidazole.
Chief Complaint
-: Other (Abscess)
Subjective / Review of Systems
Feels good today. Drain removed.
Vital Signs / Physical Exam
Vital Signs
Vital Signs
Temp Pulse Resp BP Pulse Ox
99.3 F 69 17 122/72 96
08/24/23 07:36 08/24/23 07:36 08/24/23 07:36 08/24/23 07:36 08/24/23 07:36
Physical Exam
Constitutional: No Acute Distress and Comfortable
Cardiovascular: Regular Rate and S1/S2
Pulmonary: Clear
Gastrointestinal: Soft, Non Tender and Non Distended
Objective Data
Lab Data
Lab Results
08/24/23 06:21
08/24/23 06:21
Estimated Creat Clear 49 ml/min 08/24/23 06:21
Lactic Acid 1.3 mmol/L (0.7-2.0) 08/21/23 13:13
Total Bilirubin 0.8 mg/dl (0.2-1.3) 08/22/23 06:10
AST 25 U/L (14-36) 08/22/23 06:10
ALT 17 U/L (0-35) 08/22/23 06:10
Alkaline Phosphatase 86 U/L (38-126) 08/22/23 06:10
Most recent labs reviewed.
Micro Results:
08/22/23 14:55 Body Fluid Culture - Preliminary
Fluid No Growth After 48 Hours
Gram Stain - Preliminary
08/21/23 19:25 Blood Culture - Preliminary
Blood/Venous No Growth in 48 hours- Final report to follow
08/21/23 19:26 Blood Culture - Preliminary
Blood/Venous No Growth in 48 hours- Final report to follow
08/22/23 09:20 MRSA Screen - Final
Nose No Methicillin Resistant Staphylococcus aureus isolated.
08/21/23 13:22 Blood Culture - Preliminary
Blood/Venous No Growth in 48 hours- Final report to follow
08/21/23 13:14 Blood Culture - Preliminary
Blood/Venous No Growth in 48 hours- Final report to follow
08/22/23 14:55 Anaerobic Culture - Preliminary
Abdomen Culture pending. Anaerobic cultures are examined after 3
days incubation. Additional information to follow.
08/21/23 CT a/p: Small amount of rectal contrast administered and extends into the rectal pouch. There is contrast present within the vaginal canal, and would raise concern for communication between the rectal pouch endovaginal canal. Ill-defined
collection is present superior to the rectal pouch and posterior to the retroverted uterus within the presacral region, new since prior CT examination. Infected collection is a possibility. Numerous foci of retroperitoneal air extending superiorly
within the pelvis and abdomen. Small foci of air adjacent to the liver and gallbladder may represent extension of retroperitoneal air intraperitoneally. No significant intraperitoneal air underneath the hemidiaphragms.
--- NOTE | 2023-08-24 11:28 | W.PN.CRS1 ---
Today's Communication / Plan
-
Drain removal by IR.
Assessment/Plan
-
57-year-old female with a history of CKD, ulcerative colitis status post near total proctocolectomy with J-pouch (3-stage) by Dr. Goldsmith, which was very quickly converted to an end ileostomy due to hemorrhaging, who presents 2 days after a
surveillance flexible sigmoidoscopy of her rectal stump with concern for a localized retroperitoneal perforation.
1. White blood cell count normalized and afebrile overnight. Continues to improve.
2. Discussed options regarding the IR drain including upfront removal versus drain study today or at a later date. Given the clinical improvement and the minimal serosanguineous output, I think it is reasonable to have it removed. IR was
consulted for that and they agreed to proceed.
3. Okay for discharge today versus tomorrow from a surgical perspective. Antibiotics per ID. No need for surgical intervention.
Subjective Data
Subjective Data
Date of Service: August 24, 2023
No complaints. Tolerating diet.
Objective Data
-
Vital Signs
Temp Pulse Resp BP Pulse Ox
99.3 F 69 17 122/72 96
08/24/23 07:36 08/24/23 07:36 08/24/23 07:36 08/24/23 07:36 08/24/23 07:36
Intake & Output
08/23/23 08/24/23 08/25/23
06:59 06:59 06:59
Intake Total 1450 / 1450 1590 / 1590
Output Total
Balance 1445 / 1445 1565 / 1565
Intake:
Oral fluids 240 / 240 1480 / 1480
IV fluids (Total) 1200 / 1200
IV piggybacks 100 / 100
Amount instilled into Drain (
Total)
Left Atif-Corona Placed in IR
Output:
Drain Output (Total)
Left Atif-Corona Placed in IR
Other:
Number of approximated MODERATE 1 1
amounts of urine
Lab Results
08/24/23 06:21
08/24/23 06:21
Physical Exam
-
General: No Acute Distress
Chest: Clear
Cardiovascular: Regular Rate & Rhythm
Abdomen: Non Distended, Non Tender and Other (IR drain with scant serosanguineous output.)
--- NOTE | 2023-08-24 11:54 | W.DCSUMMARY ---
Discharge Summary
Discharge Data
Date of Admission: 08/21/23
Date of Discharge: 08/24/23
-
Pending Results: Yes
Additional Pending Results:
Official Culture Results
Hospital Course
57 yo female h/o CKD-3 and Ulcerative colitis with a total colectomy in 2003 with creation of J-pouch at [facility] and subsequent end ileostomy d/t complications with the j-pouch- underwent a routine surveillance sigmoidoscopy on as an outpatient
with Dr. Nicole. Bleeding was noted during the procedure. She has had continued progressively worsening rectal pain since the procedure. She was febrile with a temperature of 101 with chills, nausea and vomiting day prior to presentation here,
although she cannot be sure if she was febrile on since she did not take her temperature that day. Subsequently, Cipro/flagyl was started outpt without much effect so her brought her to the ED. Significant leukocytosis noted. CT of
the abdomen pelvis-with rectal contrast only-status post colectomy with rectal pouch.� There was contrast in the vaginal canal that raised concern for communication between Rectum and vaginal canal.� Ill-defined collection in the superior to the
lateral margin posterior to the retroverted uterus within the presacral region infected collection possibly.� Numerous foci of retroperitoneal air extending superiorly within the pelvis and abdomen, small foci of air adjacent to the liver and
gallbladder. Cholelithiasis. Sepsis-source abscess/perforation with possible rectovaginal fistula-postprocedure, pelvic drainage catheter placed very little fluid, drain was removed prior to discharge. Leukocytosis resolved with empiric
antibiotics. Fluid and blood cultures NGTD at time of discharge. Tolerating diet, IVF support completed. ID evaluated and empiric Zosyn was transitioned to Levofloxacin 750 mg daily and metro 500 mg Q8 x 10 more days. SPENCER, unclear baseline,
patient improved with hold on lisinopril and IVF support. Medically stable, patient was discharged home with outpatient follow up recommendations.
Discharge Plan
-
Patient Disposition: Home (Routine Discharge)
Discharge Diagnosis/Procedures: Sepsis due to abscess perforation possibly related to recent rectovaginal fistula procedure, Acute Kidney Injury resolving, Hypokalemia resolved, Hyponatremia resolved, history Ulcerative colitis total colectomy end
Ileostomy 2003
Condition: Fair
Diet: Regular
Activity: As tolerated
Driving Restrictions: As prior to admission
Bathing Restrictions: None
Blood Work: Please repeat CBC and BMP with primary care provider in 1 week of discharge.
Activity Restrictions/Additional Instructions:
Please follow up with primary care provider in 1 week of discharge and surgeon in 2-4 weeks of discharge.
Levofloxacin and Metronidazole have been prescribed for 10 more days to complete antibiotic treatment intr-abdomen infection.
Please avoid alcohol intake while taking metronidazole to avoid adverse interaction/reaction
Please take medications as prescribed/recommended and follow up with primary care provider and/or other healthcare provider involved in your care for further adjustments to your medication regimen as necessary.
Referrals:
Carmelo Cedeño MD [Active] - in two weeks
Arnoldo Arreaga CRNP [Family Provider] - in one week
Prescriptions:
New
metronidazole 500 mg Tablet
500 mg PO Q8 10 Days Qty: 30 0RF
levofloxacin 750 mg Tablet
750 mg PO DAILY 10 Days Qty: 10 0RF
Continued
acetaminophen [Tylenol] 325 mg Tablet
650 mg PO Q6HPRN PRN (Reason: mild pain)
therapeutic multivitamin Tablet
1 tab PO DAILY
ascorbic acid (vitamin C) [Vitamin C] 500 mg Tablet
500 mg PO DAILY
vitamin E 268 mg (400 unit) Capsule
268 mg PO DAILY
omega-3 fatty acids-fish oil 684-1,200 mg Capsule,Delayed Release(Dr/Ec)
1 cap PO DAILY
Held
lisinopril 2.5 mg Tablet
2.5 mg PO DAILY
Hold Instructions: Follow up with primary care provider in 1 week of discharge to determine when safe to resume, if necessary to resume.
Discontinued
metronidazole 500 mg Tablet
500 mg PO TID
ciprofloxacin HCl 500 mg Tablet
500 mg PO BID
Patient Comments:
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
Discharge Orders:
Discharge Patient (As Directed); Ordered 08/24/23
Ordered By: Alessio Montoya
Discharge Date and Time
Discharge Date/Time: 08/24/23 13:24
== END 2023-08-24 13:24 | disposition home or self-care (01) | DRG 872 ==
LOC: 4 WEST ACU 15:49
PROVIDERS: Nurse Practitioner; Radiology Vascular & Interventional Radiology; Registered Nurse; ADMITTING PHYSICIAN Hospitalist; ATTENDING PHYSICIAN Internal Medicine; CONSULT PHYSICIAN Internal Medicine Infectious Disease; CONSULT PHYSICIAN Surgery; EMERGENCY PHYSICIAN Emergency Medicine; FAMILY PHYSICIAN Nurse Practitioner Family
PROC: 0W9J3ZZ Drainage of Pelvic Cavity, Percutaneous Approach (ICD-10-PCS; 2023-08-22)
DX: A41.9 Sepsis, unspecified organism (principal); K68.11 Postprocedural retroperitoneal abscess; N17.9 Acute kidney failure, unspecified; E87.1 Hypo-osmolality and hyponatremia; B95.7 Other staphylococcus as the cause of diseases classified elsewhere; N18.30 Chronic kidney disease, stage 3 unspecified; E87.6 Hypokalemia; Z86.718 Personal history of other venous thrombosis and embolism
CPT/HCPCS: 49406; 74176; 80048; 80053; 83605; 83735; 85025; 85027; 87015; 87040; 87070; 87075; 87147; 87205; 96374; 99152; 99153; 99285

== ENCOUNTER → 2024-08-18 09:00 | Outpatient (REF) | payer OTHER, SELFPAY | LOC: HWWDC 09:00 | PROVIDERS: ATTENDING PHYSICIAN Nurse Practitioner Family | DX: Z12.31 Encounter for screening mammogram for malignant neoplasm of breast (principal) | CPT/HCPCS: 77063; 77067 ==

== ENCOUNTER → 2025-01-25 09:22 | Outpatient (REF) | payer OTHER, SELFPAY | LOC: HWRAD 09:22 | PROVIDERS: ATTENDING PHYSICIAN Specialist; FAMILY PHYSICIAN Nurse Practitioner Family | DX: N18.31 Chronic kidney disease, stage 3a (principal); R80.1 Persistent proteinuria, unspecified | CPT/HCPCS: 76770 ==